=== PATIENT | female | born 1995 | race Caucasian/White ===

== ENCOUNTER 2022-02-28 14:53 | Outpatient (CLI) | payer OTHER, SELFPAY ==
[2022-02-28 15:36] LABS: Hemoglobin A1C* 5.1 % (0-5.6)
[2022-02-28 17:43] LABS: Hepatitis B Surface Antigen* Negative (Negative)
[2022-02-28 17:52] LABS: HIV 1/2/P24 Combo Screen* Negative (Negative)
[2022-02-28 18:00] LABS: Hepatitis C Virus Antibody* Negative (Negative)
[2022-03-02 14:31] LABS: Rubella Antibody IgG 36.4 IU/mL
[2022-03-02 14:51] LABS: Rapid Plasma Reagin (RPR) Non Reactive (Non Reactive)
== END 2022-02-28 14:54 | disposition home or self-care (01) ==
PROVIDERS: PCP Family Medicine; Visit Provider Advanced Practice Midwife
DX: Z34.81 Encounter for supervision of other normal pregnancy, first trimester (principal)
CPT/HCPCS: 76817; 83036; 86592; 86703; 86762; 86787; 86803; 86850; 86900; 86901; 87340

== ENCOUNTER 2022-05-31 09:21 | Outpatient (CLI) | payer OTHER, SELFPAY ==
--- NOTE | 2022-05-31 09:45 | CRLHL7_ITS ---
For Patients: As a result of the Century Cures Act, medical imaging exams and procedure reports are released immediately into your electronic medical record. You may view this report before your referring provider. If you have questions, please contact your health care provider. INDICATION: Evaluate anatomy. COMPARISON: None. TECHNIQUE: Real time rodriguez scale imaging of the fetus was performed. FINDINGS: Sonographic imaging demonstrates a single living intrauterine gestation. Fetus demonstrates a regular cardiac rate of 134 beats per minute. Fetus has a vertex orientation and longitudinal lie. The placenta lies anteriorly without evidence of placenta previa. Amniotic fluid volume appears normal. Single deepest vertical pocket: 3.0 cm. The cervix is closed and measures 3.5 cm in length. The composite ultrasound gestational age is calculated at 19 weeks 5 days with an estimated sonographic due date of October 20, 2022. The estimated weight is 321 grams which lies at the 58th percentile. The following biometric measurements were obtained: Biparietal diameter: 4.6 cm/19 weeks 5 days 53rd% Head circumference: 17.01 cm/19 weeks 4 days 38th% Abdominal circumference: 14.80 cm/20 weeks 1 day 57th% Femur length: 3.16 cm/19 weeks 6 days 47th% The HC/AC ratio measures: 1.15 range (1.08-1.26) On anatomic survey, there is a normal appearance of the cerebral ventricles, cisterna magna and cerebellum. The nose, lips, and facial profile appear normal. The cervical, thoracic and lumbar spine are well visualized and appear normal. The four-chamber heart view and cardiac outflow tracts are suboptimally visualized. Recommend a limited repeat study in 2-4 weeks for these structures. Additionally the diaphragm was not well seen. The stomach, kidneys and bladder appear normal. There is a normal three-vessel cord and cord insertion site. The four extremities appear normal. IMPRESSION: Normal OB ultrasound exam with concordance of clinical and sonographic dating. No intrinsic abnormalities noted on anatomic survey. Please note the four-chamber heart view and cardiac outflow tracts as well as the diaphragm were not optimally visualized and therefore a short interval follow-up limited study for these structures is recommended. Dictated by Andres Dobbs MD @ 05/31/2022 11:03:17 AM (Electronically Signed)
== END 2022-05-31 09:22 | disposition home or self-care (01) ==
LOC: US 09:21
PROVIDERS: PCP Family Medicine; Visit Provider Advanced Practice Midwife
DX: Z34.92 Encounter for supervision of normal pregnancy, unspecified, second trimester (principal); Z3A.19 19 weeks gestation of pregnancy
CPT/HCPCS: 76805; 82728; 84132; 84443

== ENCOUNTER 2022-07-09 09:28 | Outpatient (CLI) | payer OTHER, SELFPAY ==
--- NOTE | 2022-07-09 09:45 | CRLHL7_ITS ---
For Patients: As a result of the Century Cures Act, medical imaging exams and procedure reports are released immediately into your electronic medical record. You may view this report before your referring provider. If you have questions, please contact your health care provider. INDICATION: Follow-up missed anatomy COMPARISON: 05/31/2022 TECHNIQUE: Real time rodriguez scale imaging of the fetus was performed. FINDINGS: Sonographic imaging demonstrates a single living intrauterine gestation. Fetus demonstrates a regular cardiac rate of 126 beats per minute. Fetus has a vertex position. The placenta lies anteriorly. Amniotic fluid volume appears normal. Single deepest vertical pocket: 5.6 cm. The cervix is closed and measures 3.4 cm in length. There is a normal four-chamber heart view and the left and right ventricular outflow tracts appear normal. The diaphragm appears normal. IMPRESSION: Normal heart and diaphragm. Dictated by Alexey Lyn MD @ 07/09/2022 10:18:01 AM (Electronically Signed)
== END 2022-07-09 09:29 | disposition home or self-care (01) ==
LOC: US 09:29
PROVIDERS: PCP Family Medicine; Visit Provider Advanced Practice Midwife
DX: Z34.90 Encounter for supervision of normal pregnancy, unspecified, unspecified trimester (principal)
CPT/HCPCS: 76816

== ENCOUNTER 2022-08-02 14:04 | Outpatient (CLI) | payer OTHER, SELFPAY ==
[2022-08-05 16:57] LABS: Rapid Plasma Reagin (RPR) Non Reactive (Non Reactive)
== END 2022-08-02 14:05 | disposition home or self-care (01) ==
LOC: NFLDREF 14:35
PROVIDERS: PCP Family Medicine; Visit Provider Advanced Practice Midwife
DX: Z34.80 Encounter for supervision of other normal pregnancy, unspecified trimester (principal)
CPT/HCPCS: 86592

== ENCOUNTER 2022-08-16 15:02 | Outpatient (CLI) | payer OTHER, SELFPAY ==
[2022-08-16 17:36] LABS: Alanine Aminotransferase* 20 U/L (4-35); Aspartate Amino Transferase* 21 U/L (12-35); Creatinine* 0.5 mg/dL (0.5-1.5); Estimated Glomerular Filt Rate 133 ml/min
[2022-08-16 17:45] LABS: Total Protein Urine < 5 mg/dL
[2022-08-16 17:46] LABS: Creatinine Urine 234.4 mg/dL
== END 2022-08-16 15:03 | disposition home or self-care (01) ==
PROVIDERS: PCP Family Medicine; Visit Provider Advanced Practice Midwife
DX: Z34.83 Encounter for supervision of other normal pregnancy, third trimester (principal); Z3A.30 30 weeks gestation of pregnancy
CPT/HCPCS: 82565; 82570; 84156; 84450; 84460

== ENCOUNTER 2022-09-28 14:47 | Outpatient (CLI) | payer OTHER, SELFPAY ==
[2022-09-29 12:58] LABS: Strep B DNA Probe NEGATIVE (Negative)
[2022-09-29 13:03] LABS: Strep B Pen/Amox Allergy No
== END 2022-09-28 14:48 | disposition home or self-care (01) ==
LOC: NFLDREF 14:47
PROVIDERS: PCP Family Medicine; Visit Provider Advanced Practice Midwife
DX: Z34.93 Encounter for supervision of normal pregnancy, unspecified, third trimester (principal); Z3A.36 36 weeks gestation of pregnancy
CPT/HCPCS: 87081; 87653

== ENCOUNTER 2022-10-05 15:04 | Outpatient (CLI) | payer OTHER, SELFPAY | END 2022-10-05 15:05 | disposition home or self-care (01) | PROVIDERS: PCP Family Medicine; Visit Provider Advanced Practice Midwife | DX: Z34.93 Encounter for supervision of normal pregnancy, unspecified, third trimester (principal) | CPT/HCPCS: 82728; 83540; 83550 ==

== ENCOUNTER 2022-10-09 13:30 | Emergency (ER) | payer OTHER, SELFPAY ==
[2022-10-09] VITALS (20 sets, daily range): BP systolic 108–137; BP diastolic 65–97; PULSE 78–119; RESP 16–20; TEMP 36.5; O2SAT 96–100; BMI 38.1
--- NOTE | 2022-10-09 13:58 | ED_ITS ---
HPI - Chest Pain General Date Seen: 10/09/22 Chief Complaint: Chest Pain Stated Complaint: 38.5 weeks , chest pain Time Seen by Provider: 10/09/22 13:36 Source: patient Mode of arrival: ambulatory Limitations: no limitations History of Present Illness HPI narrative: This pleasant 27-year-old female presents here for evaluation of chest pain that she has had for approximately 4-5 hours whenever she moves twists or turns she notes pain that radiates from her chest region up into her neck. Son some much when she takes a deep breath in, she denies any coughing fevers chills, she has never before had this. She is 38+ weeks currently, no past history of pulmonary emboli DVTs. She has however have been slightly elevated blood pressure with this at least at the end. 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 MD complaint: chest pain Onset (ago): hour(s) Timing of current episode: episodic Prior episodes: No Onset: during rest, during exertion and awoke with symptoms Pain location: substernal and left chest Pain radiation: back and neck Severity: mild Quality: sharp Relieving factors: remaining still Exacerbating factors: movement Treatment prior to arrival: none Risk Factors Coronary artery disease risk factors: none Pulmonary embolism risk factors: Related Data On Oral Contraceptives: No Home Medications Medication Instructions Recorded Confirmed cetirizine 10 mg tablet (Zyrtec) 10 mg PO QDAY PRN 02/14/22 09/28/22 docosahexaenoic acid 200 mg mg PO 02/14/22 09/28/22 capsule ( DHA) fluticasone propionate 50 1 spray intranasal QDAY PRN 02/28/22 09/28/22 mcg/actuation nasal spray,suspension (Flonase Allergy Relief) magnesium oxide,aspartate,citr mg PO 04/13/22 09/28/22 docusate sodium 100 mg capsule 100 mg PO QDAY 07/09/22 09/28/22 (Colace) calcium carbonate 200 mg calcium 200 mg PO BID 10/05/22 10/05/22 (500 mg) chewable tablet (Tums) Previous Rx's Medication Instructions Recorded triamcinolone acetonide 0.1 % 1 applic topical ONCE #15 grams 05/09/22 topical ointment albuterol sulfate 90 mcg/actuation 2 puff inhalation Q4H PRN 10/03/22 aerosol inhaler shortness of breath or wheezing #6.7 grams Allergies Allergy/AdvReac Type Severity Reaction Status Date / Time epinephrine Allergy Intermediate Racing Verified 10/09/22 13:43 heart Sulfa (Sulfonamide Allergy Intermediate Hives Verified 10/09/22 13:43 Antibiotics) amoxicillin Allergy Unknown Verified 10/09/22 13:43 ciprofloxacin Allergy Unknown Verified 10/05/22 14:48 Clavulanate Allergy Unknown Uncoded 10/05/22 14:48 Review of Systems Status of ROS Reports: 10 or more systems reviewed and unremarkable except as noted in History and below [facility] Medical History Family history of breast cancer History of gestational diabetes Surgical History History of ovarian cystectomy Status post cholecystectomy Family History Family/Other Diabetes Paternal Grandfather Diabetes Mother Breast cancer High blood pressure Cervical cancer Father High blood pressure Brother ADHD Social History Narrative: SOCIAL Education: Diploma Work: [employer] Partner: Praneeth, clinical research associate Lives with: Praneeth, Daughter, Deborah (4) and son Larry(1); Step daughter, Lacy (8) Pets: 3 cats Abuse: Denies past/present Special Diet: Denies Ok with a blood transfusion: yes Culture or sabianist beliefs: denies RISK FACTORS Exercise Times/wk: routine at work, not outside Depression/Anxiety: Overall now doing well, used Prozac prior to SCOOTER: [] PHQ 9: [] Seat Belt Use: [Routinely] Smoking: History of smoking, occasional smoker now, stopped with Alcohol/day: Denies while , occasional Caffeine: yes, soda Drug Use: Denies past/present Chicken Pox: Yes, recently and was vaccinated as a child MRSA: Denies Smoking Status: Former smoker Do you use any of these nicotine containing products: None Second hand tobacco smoke exposure: No How often do you have a drink containing alcohol: never How often do you have six or more drinks on one occasion: Never AUDIT-C Alcohol total score: 0 Non-prescribed substance use: denies use Little interest or pleasure in doing things: not at all Feeling down, depressed, or hopeless: not at all service: No Exam Narrative Exam Narrative: She is seen in room H she is in no apparent distress speaking to me normally, her pupils are equal round reactive to light, there is no scleral icterus redness, cranial nerves 3-12 are normal, her neck is supple, her JVP is not elevated, her chest is clear bilaterally with easy respirations no splinting, no extra sounds, heart sounds no clicks murmurs or gallops, she has no palpable chest pain across her chest, and it is not reproducible. Her abdomen is soft and gravid, there is no tenderness to palpation bowel sounds are normal, the fetus is alert and active, OB nurses in, showing a reactive tracing, or lower legs bilaterally show 1+ pitting edema bilaterally, negative Homans sign, she moves all extremities independently and well. Const Vital Signs, click to edit/add: Vital Signs - 24 hr 10/09/22 13:35 10/09/22 13:56 10/09/22 14:00 Temperature 97.7 F Pulse Rate 98 106 H Pulse Rate [Pulse Oximeter] 102 H Respiratory Rate 20 Blood Pressure Blood Pressure [Right Upper Arm] 130/83 Pulse Oximetry 98 98 97 Oxygen Delivery Method Room Air 10/09/22 14:02 10/09/22 14:15 10/09/22 14:30 Temperature Pulse Rate 119 H 100 84 Pulse Rate [Pulse Oximeter] Respiratory Rate Blood Pressure 119/80 Blood Pressure [Right Upper Arm] Pulse Oximetry 97 97 96 Oxygen Delivery Method 10/09/22 14:32 10/09/22 14:49 10/09/22 15:00 Temperature Pulse Rate 90 95 91 Pulse Rate [Pulse Oximeter] Respiratory Rate Blood Pressure 111/76 Blood Pressure [Right Upper Arm] Pulse Oximetry 96 97 96 Oxygen Delivery Method 10/09/22 15:02 10/09/22 15:15 10/09/22 15:30 Temperature Pulse Rate 105 H 87 78 Pulse Rate [Pulse Oximeter] Respiratory Rate Blood Pressure 113/71 Blood Pressure [Right Upper Arm] Pulse Oximetry 96 96 96 Oxygen Delivery Method 10/09/22 15:32 10/09/22 15:45 10/09/22 16:00 Temperature Pulse Rate 89 80 80 Pulse Rate [Pulse Oximeter] Respiratory Rate Blood Pressure 108/65 Blood Pressure [Right Upper Arm] Pulse Oximetry 97 98 98 Oxygen Delivery Method 10/09/22 16:02 Temperature Pulse Rate 92 Pulse Rate [Pulse Oximeter] Respiratory Rate Blood Pressure 112/66 Blood Pressure [Right Upper Arm] Pulse Oximetry 99 Oxygen Delivery Method Documenting provider has reviewed patient's vital signs: yes Course Course Hospital Course: I went back in and spoke to the patient and her , her D-dimer, troponin, chest X were all normal, she has these fleeting episodes of chest pain with radiation, I did offer her to do a CT scan of her chest, with contrast but I really think when the likelihood of this is a pulmonary emboli is low, given her normal saturations, and normal D-dimer. This more likely is related to the hormonal changes with , the loosening of ligaments, I explained to her that I would just watch this at this point, take some Tylenol for the discomfort, we went over worsening signs and symptoms she was comfortable with this. Will return if any further issues. Vital Signs Vital signs: Initial Vital Signs Temperature 97.7 F 10/09/22 13:35 Temperature Source Temporal Artery Scan 10/09/22 13:35 Pulse Rate 102 H 10/09/22 13:35 Pulse Rhythm 10/09/22 13:35 Pulse Strength 3+ Normal 10/09/22 13:35 Respiratory Rate 20 10/09/22 13:35 Blood Pressure 130/83 10/09/22 13:35 Blood Pressure Mean 98 10/09/22 13:35 Blood Pressure Position Sitting 10/09/22 13:35 Pulse Oximetry 98 10/09/22 13:35 Oxygen Delivery Method 10/09/22 13:35 Vital Signs Temperature 97.7 F 10/09/22 13:35 Pulse Rate 102 H 10/09/22 13:35 Respiratory Rate 20 10/09/22 13:35 Blood Pressure 130/83 10/09/22 13:35 Pulse Oximetry 98 10/09/22 13:35 Oxygen Delivery Method 10/09/22 13:35 Temperature 97.7 F 10/09/22 13:35 Pulse Rate 92 10/09/22 16:02 Respiratory Rate 20 10/09/22 13:35 Blood Pressure 112/66 10/09/22 16:02 Pulse Oximetry 99 10/09/22 16:02 Oxygen Delivery Method 10/09/22 13:35 MDM - Chest Pain MDM Narrative Medical decision making narrative: During the evaluation of this patient I considered multiple differential diagnosis is. The life-threatening differential diagnosis include coronary disease/AL, pulmonary embolism, pneumothorax, pneumonia, and aortic dissection. Other differential diagnosis included but were not limited to pericarditis, myocarditis, chest wall pain, GERD, esophageal rupture, rib fracture contusion, pleurisy, as well as other etiologies. Medical Records Data Attestation: I reviewed the patient's medical records. Lab Data Attestation: I reviewed the patient's lab results. Lab results narrative: Hemoglobin was low normal at 11.6, D-dimer was normal troponin was negative, EKG was normal Labs: Lab Results 10/09/22 10/09/22 10/09/22 Range/Units 14:20 14:20 14:20 WBC 10.42 (4.50-11.00) K/uL RBC 3.89 L (4.00-5.20) m/uL Hgb 11.6 L (12.0-16.0) gm/dL Hct 34.9 (33.0-51.0) % MCV 90 (80-100) fL MCH 30 (26-34) pg MCHC 33 (32-36) gm/dL RDW Coeff of Jonathan 13.3 (11.5-15.5) % Plt Count 311 (140-440) K/uL Neut % (Auto) 66.0 (42.0-72.0) % Lymph % (Auto) 21.9 (20-44) % Thomas % (Auto) 7.9 (0.0-11.0) % Eos % (Auto) 2.7 (0.0-7.0) % Baso % (Auto) 0.2 (0.0-3.0) % Neut # (Auto) 6.88 (1.7-7.0) K/uL Lymph # (Auto) 2.28 (0.90-2.90) K/uL Thomas # (Auto) 0.80 (0.00-0.90) K/UL Eos # (Auto) 0.28 (0.00-0.50) K/uL Baso # (Auto) 0.02 (0.00-0.30) K/uL INR (0.91-1.10) APTT 28 (23-33) Seconds D-Dimer Quant (PE/DVT) 0.45 (0.00-0.50) ug/ml Sodium 136 (135-149) mmol/L Potassium 3.6 (3.6-5.1) mmol/L Chloride 109 (96-114) mmol/L Carbon Dioxide 22 (20-32) mmol/L BUN 6 (5-24) mg/dL Creatinine 0.4 L (0.5-1.5) mg/dL Estimated Creat Clear 184.04 Estimated GFR 140 ml/min Glucose 89 (60-115) mg/dL Calcium 9.0 (8.4-10.6) mg/dL Total Bilirubin 0.3 (0.1-1.5) mg/dL Direct Bilirubin 0.2 (0.0-0.5) mg/dL AST 20 (12-35) U/L ALT 21 (4-35) U/L Alkaline Phosphatase 156 H (40-150) U/L C-Reactive Protein 1.0 (0.5-1.0) mg/dL NT-Pro-B Natriuret Pep pg/mL Total Protein 6.9 (6.0-8.3) g/dL Albumin 3.5 (3.3-5.0) g/dL Lipase 77 (23-300) U/L SARS-CoV-2 (PCR) (Negative) Influenza Type A (PCR) (Negative) Influenza Type B (PCR) (Negative) RSV (PCR) (Negative) POC Troponin I (0.01-0.04) ng/ml 10/09/22 10/09/22 10/09/22 Range/Units 14:20 14:20 14:20 WBC (4.50-11.00) K/uL RBC (4.00-5.20) m/uL Hgb (12.0-16.0) gm/dL Hct (33.0-51.0) % MCV (80-100) fL MCH (26-34) pg MCHC (32-36) gm/dL RDW Coeff of Jonathan (11.5-15.5) % Plt Count (140-440) K/uL Neut % (Auto) (42.0-72.0) % Lymph % (Auto) (20-44) % Thomas % (Auto) (0.0-11.0) % Eos % (Auto) (0.0-7.0) % Baso % (Auto) (0.0-3.0) % Neut # (Auto) (1.7-7.0) K/uL Lymph # (Auto) (0.90-2.90) K/uL Thomas # (Auto) (0.00-0.90) K/UL Eos # (Auto) (0.00-0.50) K/uL Baso # (Auto) (0.00-0.30) K/uL INR 0.94 (0.91-1.10) APTT (23-33) Seconds D-Dimer Quant (PE/DVT) (0.00-0.50) ug/ml Sodium (135-149) mmol/L Potassium (3.6-5.1) mmol/L Chloride (96-114) mmol/L Carbon Dioxide (20-32) mmol/L BUN (5-24) mg/dL Creatinine (0.5-1.5) mg/dL Estimated Creat Clear Estimated GFR ml/min Glucose (60-115) mg/dL Calcium (8.4-10.6) mg/dL Total Bilirubin (0.1-1.5) mg/dL Direct Bilirubin (0.0-0.5) mg/dL AST (12-35) U/L ALT (4-35) U/L Alkaline Phosphatase (40-150) U/L C-Reactive Protein (0.5-1.0) mg/dL NT-Pro-B Natriuret Pep < 20 pg/mL Total Protein (6.0-8.3) g/dL Albumin (3.3-5.0) g/dL Lipase (23-300) U/L SARS-CoV-2 (PCR) Negative SARS-CoV-2 (Negative) Influenza Type A (PCR) Negative PCR FLU A (Negative) Influenza Type B (PCR) Negative PCR FLU B (Negative) RSV (PCR) Negative PCR RSV (Negative) POC Troponin I (0.01-0.04) ng/ml 10/09/22 Range/Units 14:23 WBC (4.50-11.00) K/uL RBC (4.00-5.20) m/uL Hgb (12.0-16.0) gm/dL Hct (33.0-51.0) % MCV (80-100) fL MCH (26-34) pg MCHC (32-36) gm/dL RDW Coeff of Jonathan (11.5-15.5) % Plt Count (140-440) K/uL Neut % (Auto) (42.0-72.0) % Lymph % (Auto) (20-44) % Thomas % (Auto) (0.0-11.0) % Eos % (Auto) (0.0-7.0) % Baso % (Auto) (0.0-3.0) % Neut # (Auto) (1.7-7.0) K/uL Lymph # (Auto) (0.90-2.90) K/uL Thomas # (Auto) (0.00-0.90) K/UL Eos # (Auto) (0.00-0.50) K/uL Baso # (Auto) (0.00-0.30) K/uL INR (0.91-1.10) APTT (23-33) Seconds D-Dimer Quant (PE/DVT) (0.00-0.50) ug/ml Sodium (135-149) mmol/L Potassium (3.6-5.1) mmol/L Chloride (96-114) mmol/L Carbon Dioxide (20-32) mmol/L BUN (5-24) mg/dL Creatinine (0.5-1.5) mg/dL Estimated Creat Clear Estimated GFR ml/min Glucose (60-115) mg/dL Calcium (8.4-10.6) mg/dL Total Bilirubin (0.1-1.5) mg/dL Direct Bilirubin (0.0-0.5) mg/dL AST (12-35) U/L ALT (4-35) U/L Alkaline Phosphatase (40-150) U/L C-Reactive Protein (0.5-1.0) mg/dL NT-Pro-B Natriuret Pep pg/mL Total Protein (6.0-8.3) g/dL Albumin (3.3-5.0) g/dL Lipase (23-300) U/L SARS-CoV-2 (PCR) (Negative) Influenza Type A (PCR) (Negative) Influenza Type B (PCR) (Negative) RSV (PCR) (Negative) POC Troponin I 0.00 L (0.01-0.04) ng/ml Imaging Data Chest x-ray: Attestation: I have reviewed the pertinent imaging results. My impression: No acute changes Radiologist's impression: Patient: CARRIE KUO Facility:?[facility] Patient ID:?[id number] Site Patient ID:?[id number]. Site :?[id number] Study:?XRay Chest 2 VIEW-10/09/2022 2:54:17 PM Ordering Physician:Jeana Tran Final Report: INDICATION: CHEST PAIN TECHNIQUE: Chest 2 views. COMPARISON: None. FINDINGS: Cardiovascular and mediastinum: Heart size and vasculature are normal in caliber and appearance. Mediastinum is within normal limits. Lungs and pleural spaces: Lungs are clear. No sign of infiltrate or mass. No sign of pleural effusion. No pneumothorax. Bones and soft tissues: No significant findings. IMPRESSION: Unremarkable chest. Dictated by: Alexey Bai MD @ 10/09/2022 15:01:29 (Electronic Signature) ECG Data Attestation: I personally reviewed and interpreted this ECG as follows: ECG interpretation date: 10/09/22 Interpretation: EKG shows no acute changes, normal sinus rhythm with a heart rate of 97, otherwise normal Discharge Plan Discharge Clinical Impression: , Chest pain Patient Disposition: Home w/ Parent or Adult Condition: Stable Instructions: Chest Pain (DC), at 35 to 38 Weeks (ED) Additional Instructions: As I discussed with you in her , very reassuring laboratory results, no evidence of any significant abnormality on the the chest x-ray EKG or blood tests, the D-dimer was reassuring we normal. Would not recommend further testing for this at this point, would recommend Tylenol for the discomfort, and reassurance. It is really common at the end of to have these sort of pains, and hormonal issues. Return if increasing chest pain shortness of breath Prescriptions: No Action cetirizine [Zyrtec] 10 mg tablet 10 mg PO QDAY PRN DHA 200 mg capsule PO magnesium oxide,aspartate,citr 400 mg magnesium capsule PO calcium carbonate [Tums] 200 mg calcium (500 mg) tablet,chewable 200 mg PO BID fluticasone propionate [Flonase Allergy Relief] 50 mcg/actuation spray,suspension 1 spray intranasal QDAY PRN Rx Instructions: administer into each nostril triamcinolone acetonide 0.1 % ointment 1 applic topical ONCE Qty: 15 0RF docusate sodium [Colace] 100 mg capsule 100 mg PO QDAY albuterol sulfate 90 mcg/actuation HFA aerosol inhaler 2 puff inhalation Q4H PRN (Reason: shortness of breath or wheezing) Qty: 6.7 2RF Follow Up/Referrals: Britton Johnson MD [Primary Care Provider] - Stand Alone Forms: [facility] Info Instructions
--- NOTE | 2022-10-09 14:22 | CRLHL7_ITS ---
For Patients: As a result of the Century Cures Act, medical imaging exams and procedure reports are released immediately into your electronic medical record. You may view this report before your referring provider. If you have questions, please contact your health care provider. INDICATION: CHEST PAIN TECHNIQUE: Chest 2 views. COMPARISON: None. FINDINGS: Cardiovascular and mediastinum: Heart size and vasculature are normal in caliber and appearance. Mediastinum is within normal limits. Lungs and pleural spaces: Lungs are clear. No sign of infiltrate or mass. No sign of pleural effusion. No pneumothorax. Bones and soft tissues: No significant findings. IMPRESSION: Unremarkable chest. Dictated by: Alexey Bai MD @ 10/09/2022 15:01:29 (Electronically Signed)
--- NOTE | 2022-10-09 14:41 | PC.OBNST ---
NST Note NST Note Start: 10/09/22 14:37 Freq: ONCE Status: Active Protocol: Document 10/09/22 14:37 MAXINE (Rec: 10/09/22 14:41 FERMÍNGENNA [id number]) NST Note 3 Para (# of births) 2 EDC 10/20/22 Gestational Age In Weeks & Days 38 Weeks & 3 Days Patient Presented with Complaint(s) of Pain If Pain, describe location Chest pain Other Complaints Patient admitted to ED for chest pain. RN came to unit to evaluate FHR and contraction pattern. FHR baseline was 135 with accels and no decels. No contractions per toco. Reactive Yes Appropriate for Gestational Age Yes NEWTON Iglesias Date 10/09/22 Reactive Yes Appropriate for Gestational Age Yes NEWTON Stanley Date 10/09/22 OB NST charge Yes Complete NST Note via Write Note Yes The provider's electronic signature indicates the NST is reactive/appropriate for gestational age. *Note to provider: If an addendum is required, open the patient's chart and click on the note under the Nurse/Allied Health tab.
[2022-10-09 14:45] LABS: Basophils Absolute Auto 0.02 K/uL (0.00-0.30); Basophils Percent Auto 0.2 % (0.0-3.0); Eosinophils Absolute Auto 0.28 K/uL (0.00-0.50); Eosinophils Percent Auto 2.7 % (0.0-7.0); Hematocrit 34.9 % (33.0-51.0); Hemoglobin* 11.6 gm/dL (12.0-16.0); Immature Granulocytes Abs Auto 0.14 K/uL (0.00-0.30); Immature Granulocytes Pct Auto 1.3 %; Lymphocytes Absolute Auto 2.28 K/uL (0.90-2.90); Lymphocytes Percent Auto 21.9 % (20-44); Mean Corpuscular HGB Conc 33 gm/dL (32-36); Mean Corpuscular Hemoglobin 30 pg (26-34); Mean Corpuscular Volume 90 fL (80-100); Monocytes Percent Auto 7.9 % (0.0-11.0); Neutrophils Absolute Auto 6.88 K/uL (1.7-7.0); Platelet Count* 311 K/uL (140-440); RDW Coefficient of Variation % 13.3 % (11.5-15.5); Red Blood Count 3.89 m/uL (4.00-5.20); White Blood Count* 10.42 K/uL (4.50-11.00)
[2022-10-09] MEDS: 0.9 % SODIUM CHLORIDE 1000 ml 1,000 ML IV (14:56)
[2022-10-09 15:12] LABS: Slide Review Reflex No
[2022-10-09 15:14] LABS: Albumin* 3.5 g/dL (3.3-5.0); Chloride* 109 mmol/L (96-114)
[2022-10-09 15:15] LABS: Potassium* 3.6 mmol/L (3.6-5.1); Sodium* 136 mmol/L (135-149)
[2022-10-09 15:17] LABS: Creatinine* 0.4 mg/dL (0.5-1.5); Est. Creatinine Clearance* 184.04; Estimated Glomerular Filt Rate 140 ml/min
[2022-10-09 15:18] LABS: Alanine Aminotransferase* 21 U/L (4-35); Alkaline Phosphatase* 156 U/L (40-150); Aspartate Amino Transferase* 20 U/L (12-35); Bilirubin Direct* 0.2 mg/dL (0.0-0.5); Bilirubin Total* 0.3 mg/dL (0.1-1.5); Blood Urea Nitrogen* 6 mg/dL (5-24); Carbon Dioxide* 22 mmol/L (20-32); Glucose* 89 mg/dL (60-115); Lipase* 77 U/L (23-300); Total Protein* 6.9 g/dL (6.0-8.3)
[2022-10-09 15:19] LABS: Partial Thromboplastin Time* 28 Seconds (23-33)
[2022-10-09 15:22] LABS: D Dimer Quantitative* 0.45 ug/ml (0.00-0.50)
[2022-10-09 15:40] LABS: PCR FLU A Negative PCR FLU A (Negative); PCR FLU B Negative PCR FLU B (Negative); PCR RSV Negative PCR RSV (Negative)
[2022-10-09 15:46] LABS: NT Pro B Type NatriureticPept* < 20 pg/mL
[2022-10-09 15:50] LABS: SARS PCR* Negative SARS-CoV-2 (Negative)
[2022-10-09 16:04] LABS: INR 0.94 (0.91-1.10); Prothrombin Time 13.2 Seconds
== END 2022-10-09 16:27 | disposition home or self-care (01) ==
PROVIDERS: Emergency Provider Family Medicine; PCP Family Medicine
DX: R07.89 Other chest pain (principal); Z3A.38 38 weeks gestation of pregnancy
CPT/HCPCS: 36415; 59025; 71046; 80048; 80076; 83690; 83880; 84484; 85025; 85379; 85610; 85730; 86140; 87502; 87634; 87635; 93005; 99284; J7030

== ENCOUNTER 2022-10-14 18:09 | Outpatient (CLI) | payer OTHER, SELFPAY ==
[2022-10-14 18:47] LABS: Amnisure Rom* Negative
[2022-10-14 18:53] VITALS: BP 126/76; PULSE 101; PULSE 90; RESP 16; TEMP 36.8; O2SAT 99
--- NOTE | 2022-10-14 19:40 | PC.OBNST ---
NST Note NST Note Start: 10/14/22 18:11 Freq: ONCE Status: Active Protocol: Document 10/14/22 19:26 JESE (Rec: 10/14/22 19:27 JESE [id number]) NST Note 3 Para (# of births) 2 EDC 10/20/22 Gestational Age In Weeks & Days 39 Weeks & 1 Days Patient Presented with Complaint(s) of Leaking fluid Reactive Yes Appropriate for Gestational Age Yes RN Bren Interiano, RNC Date 10/14/22 Reactive Yes Appropriate for Gestational Age Yes NEWTON Maldonado, RNC Date 10/14/22 OB NST charge Yes Complete NST Note via Write Note Yes The provider's electronic signature indicates the NST is reactive/appropriate for gestational age. *Note to provider: If an addendum is required, open the patient's chart and click on the note under the Nurse/Allied Health tab.
== END 2022-10-14 19:26 | disposition home or self-care (01) ==
LOC: OB OUT 18:09 → OB 18:10
PROVIDERS: PCP Family Medicine; Visit Provider Advanced Practice Midwife
DX: O47.03 False labor before 37 completed weeks of gestation, third trimester (principal); Z3A.39 39 weeks gestation of pregnancy
CPT/HCPCS: 59025; 84112; 99213

== ENCOUNTER 2022-10-15 08:45 | Inpatient (IN) | payer OTHER, SELFPAY ==
[2022-10-15] VITALS (29 sets, daily range): BP systolic 111–137; BP diastolic 55–85; PULSE 74–109; RESP 16–20; TEMP 36.6–37.2; O2SAT 98–99; BMI 38.9
--- NOTE | 2022-10-15 09:38 | P.LDBA_ITS ---
Documented by User: Susan Green 10/15/22 09:53 Subjective History of Present Illness Date Seen: 10/15/22 Narrative: Shobha is being admitted to Labor and Delivery for elective induction of labor. She is a 27 year old at weeks 39.2 gestation. H&P done 10/05/22 by Kellee Bain CNM Ob Problem list: 1. Anxiety and Depression Seen therapist in the past at [facility] Was on Prozac before , stopped by Dr. Johnson; reported mood was good at [facility] w/out meds 2. History of Hypertension with 1st Recommended baby aspirin, declines 3. BMI 35.2 4. History of Gestational Diabetes with 2nd baby, diet controlled 20 wk GTT: 125 28 wk GTT: 96 5. IBS 6. Asthma Uses inhaler 2x per week 7. Smoker Smoked occasionally during summer, stopped with + preg test 8. UTI at ER visit previously On Macrobid at [facility], RAH done at urgent care was normal/neg 9. Planning Tubal Discussed with Dr. Moreno 07/09/22. No federal consent needed; private insurance. OB - Problem Based A/P Additional Plan (1) Encounter for induction of labor: Status: Acute (2) 39 weeks gestation of : Status: Acute Plan ASSESSMENT:? 27yo at 39.2 weeks gestation? complicated by: Anxiety and Depression, History of Hypertension with 1st , BMI 35.2, History of Gestational Diabetes with 2nd baby, diet controlled, IBS, Asthma, Smoker, UTI in , Planning Tubal Labor type: Induced, Early labor? Category 1 FHR pattern.??? GBS negative? ? PLAN:? 1. Routine intrapartum cares as ordered. Cytotec per protocol for cervical ripening.? 2. Monitoring per policy, continuous ? 3. Undecided on water . Consent signed. Hep C negative. Candidate for analgesia of choice.?? 4. Patient encouraged to reposition and ambulate to promote physiologic labor and .? 5. Anticipate ? Delivery/Labor/Induction Plan Plan: induction Induction method: per misoprostol protocol OB Exam Physical Exam Vital signs: Temp Pulse BP Pulse Ox 98.2 F 101 H 134/85 99 10/15/22 09:14 10/15/22 09:15 10/15/22 09:15 10/15/22 09:16 Narrative: Vitals Reviewed? Psychiatric:? Alert and oriented x3? HEENT:? Normocephalic, atraumatic? Neck:? Supple?? Lungs:? Clear to auscultation bilaterally? Heart:? Regular rate and rhythm, no murmur, rub or gallop? Abdomen:? Soft, nontender, and gravid. Vertex by Jay's, confirmed with cervical exam.? Extremities:? No edema or erythema Detailed Labor and Delivery Exam Patient Gravid: Yes Dilation (cm): 1 Effacement (%): 50 Cervix position: posterior Consistency: soft Cervical ripeness score: 4 Contraction Frequency: 5-10 Contraction duration (sec): 60 Tachysystole: No Contraction intensity: Mild Fetus (Single) Station: -3 Amniotic Membrane Status: intact Heart Rate Baseline: 140 Monitor Accelerations: Present Monitor Decelerations: None Jail Variability: Moderate (6-25) Documented by User: Yeimy Ott CNM 10/15/22 18:44 OB - Problem Based A/P Additional Plan (1) Encounter for induction of labor: Status: Acute (2) 39 weeks gestation of : Status: Acute Plan ASSESSMENT:? 27yo at 39.2 weeks gestation? complicated by: Anxiety and Depression, History of Hypertension with 1st , BMI 35.2, History of Gestational Diabetes with 2nd baby, diet controlled, IBS, Asthma, Smoker, UTI in , Planning Tubal Labor type: Elective IOL for maternal discomfort Category 1 FHR pattern.??? GBS negative? ? PLAN:? 1. Routine intrapartum cares as ordered. 2. Cytotec per protocol for cervical ripening.? 3. Monitoring per policy, continuous ? 4. Undecided on water . Consent signed. Hep C negative. Candidate for analgesia of choice.?? 5. Patient encouraged to reposition and ambulate to promote physiologic labor and .? 6. Anticipate ?
[2022-10-15] MEDS: miSOPROStoL 25 MCG/0.25 TABLET VAGINAL ×3 (09:42→17:26)
[2022-10-15 10:52] LABS: SARS PCR* Negative SARS-CoV-2 (Negative)
[2022-10-15] MEDS: cephALEXin 500 MG CAPSULE PO (19:30)
--- NOTE | 2022-10-15 20:01 | P.OBPN_ITS ---
Subjective Time Seen by Provider: 19:45 Date Seen: 10/15/22 Narrative: Shobha is coping well with labor pain/contractions. Her partner is with her for support. She would like to continue with non pharmacologic methods and positioning for comfort and pain management.??She would like a SVE at this time. States she is feeling ctx which are more intense than previously. Not breathing through ctx at this time. Objective Exam: VSS, afebrile General Appearance:? Calm, cooperative. No acute distress. ? Psychiatric Exam: Alert and oriented, appropriate affect Abdomen: Gravid Ctx: ?Q2-5 min apart. ?Mild FHTs: Baseline: 135. Variability: moderate. Accels: present. Decels: none. SVE: /-3 Membranes: Intact ? Vital Signs: Last Vital Signs Temp 97.9 F 10/15/22 19:19 Pulse 105 H 10/15/22 19:32 Resp 16 10/15/22 19:19 BP 118/59 L 10/15/22 19:32 Pulse Ox 98 10/15/22 18:53 Assessment Heart Rate Baseline: 140 Plan Plan: Assessment:?? at 39.2 gestation?? GBS negative Patient is coping well with challenges of labor.?? Labor type: Elective IOL for maternal discomfort, early labor complicated by: hx of asthma ? Plan:?? Continue with cytotec per protocol Continue with routine intrapartum cares as ordered.?? Patient encouraged to move and change positions to promote physiologic labor and .?? Nonpharmacologic comfort measures per patient preference. Candidate for analges ia of choice if desired. Patient planning waterbirth Anticipate progress to NVD.
[2022-10-15] MEDS: LACTATED RINGERS 1000 ML 1,000 ML IV (20:49)
[2022-10-15] MEDS: OXYTOCIN 30 unit/500 ML in NS 30 UNIT/500 ML BAG 300 UNIT IVPB (21:43)
[2022-10-15] MEDS: IBUPROFEN 600 MG TABLET PO (22:08)
[2022-10-15] MEDS: OXYCODONE 5 MG TABLET PO (22:09)
--- NOTE | 2022-10-15 22:24 | W.PM.OBVAGDE ---
OB Procedure Vag Delivery Mother Details Mother Details: The patient is a 27 year-old, 3, Para 2, admitted on 10/15/22 at 39.2 weeks gestation for elective induction of labor. Additional Details Amniotic Membrane Status: intact Heart: heart tones during second stage were [] Delivery Details Delivery Details: Delivered over [intact perineum] via [spontaneous] vaginal delivery. Infant was placed on maternal abdomen.? Cord was clamped and cut after a 30-60 second delay. Nose and mouth were bulb suctioned.? Infant weight pending. Event Summary Status: Mother and infant were stable after delivery.
--- NOTE | 2022-10-15 22:27 | W.PM.OBVAGDE ---
Documented by User: Susan Green 10/15/22 22:50 OB Procedure Vag Delivery Mother Details Mother Details: The patient is a 27 year-old, 3, Para 2, admitted on 10/15/22 at Days gestation. She received 3 doses of Cytotec and went on the deliver precipitously without medication. Placenta delivered spontaneously and intact, trailing membranes were noted. She appeared to be emotionally overwhelmed after delivery and was requesting pain medication for her perineal pain. Given one dose of oxycodone and ibuprofen for pain relief. There was a small 1st degree tear which had some oozing, holding pressure to the site decreased the oozing and the patient did not want to have it repaired. Labial tear also seen and not repaired. : 3 Para: 3 Weeks Gestation: 39.2 Admission Date: 10/15/22 Additional Details Amniotic Membrane Status: SROM Amniotic Membrane Rupture Date: 10/15/22 Amniotic Membrane Rupture Time: 21:37 Amniotic Membrane Fluid Description: Meconium Stained Analgesia/Anesthesia Type: Nitrous Oxide Waterbirth: No Pitcoin: Yes (AMSTL) Intrapartal Events: Labor Induction and Precipitous Labor <3 Hrs Induction Method: per misoprostol protocol Labor Onset: 20:00 Complete: 21:35 Pushin:30 Heart: heart tones during second stage were poorly traced due to maternal discomfort and movement. At the end of pushing FHR noted to be 70-90's, position changes done and pt delivered soon after. Delivery Details Delivery Date: 10/15/22 Delivery Time: 21:41 Route of delivery: Infant Gender: Male Viability: Alive; Heart Rate Present Position at Delivery: OA Delivery Details: Delivered over intact perineum via spontaneous vaginal delivery. was placed on maternal abdomen.? Cord was clamped and cut after a >5 minute delay. Nose and mouth were bulb suctioned.? Infant weight pending. 1 Minute Interval Total Score: 8 5 Minute Interval Total Score: 9 Additional Details Shoulder Dystocia: No Placenta Delivery Time: 21:50 (trailing membranes) Placental Delivery Description: Spontaneous Procedure Done: Global Blood Loss: 25 Laceration: Perineal - 1st Degree (labial tear no repair done) Blood Loss Measurement Type: QBL Bakri Used: No Sponge/Need Count Correct: Yes Cord Vessel Description: 3 Vessels, Nuchal Cord and Delivered through Event Summary Status: Mother and were stable after delivery. Disposition: floor Documented by User: Yeimy Ott CNM 10/15/22 23:34 OB Procedure Vag Delivery Mother Details Mother Details: The patient is a 27 year-old, 3, Para 2, admitted on 10/15/22 at 39.2 Days gestation. She received 3 doses of Cytotec and went on the deliver precipitously without medication. Called to pt room. Pt breathing through ctx standing at edge of the bed. Has nitrous, which is helping. Requested epidural, but anesthesia currently placing for another patient. Unable to give fentynal r/t recent nitrous use. Pt encouraged to continue with the nitrous as anesthesia should be at bedside shortly. SROM, mod mec also noted. She then started c/o increased pressure, urge to push. SVE, complete/+2. Spontaneously bearing down w/ ctx. FHTs noted to be 70-90s when monitor was adjusted, and pt instructed to take big deep breaths. No resolution of decel, and pt encouraged to push w/ next ctx. Baby noted to be at that time. Delivery occurred shortly after. Placenta delivered spontaneously and intact, trailing membranes were noted. She appeared to be emotionally overwhelmed after delivery and was requesting pain medication for her perineal pain. Given one dose of oxycodone and ibuprofen for pain relief. There was a small 1st degree tear which had some oozing, holding pressure to the site decreased the oozing and the patient did not want to have it repaired. Right periurethral laceration also seen and not repaired. Additional Details Laceration: Perineal - 1st Degree (Perineal - oozng, resolved w/ pressure, no repair. Rt periurethral, not bleeding, not repaired)
[2022-10-16 04:45] VITALS: BP 126/72; PULSE 77; RESP 18; TEMP 36.6; O2SAT 99
[2022-10-16] MEDS: IBUPROFEN 600 MG TABLET PO ×3 (04:48→19:49)
--- NOTE | 2022-10-16 07:41 | PM.OBPNVD1 ---
OB - PN:Subj Subjective Date Seen: 10/16/22 Patient comments OB post-: no complaints, pain well controlled, perineal pain, tolerating diet and flatus present Childwold infant status: Childwold feeding status: exclusively Narrative: Shobha is a 27 y.o. who was admitted to L & D for elective IOL. ?She had an uncomplicated NVD.?The patient feels well but is a little traumatized by how fast her labor progressed. She remembers asking for an epidural and then baby was . She felt she didn't really have time to even know what was happening and then baby was on her abdomen. Overall, she feels a little better about it all today but still reports feeling traumatized by the experience. ?Her pain is well controlled with current medications. ?She has no new complaints. ?She is breast feeding and reports things are going well.? the patient has done well.? Vitals have been stable.? She has remained afebrile.? Has a good appetite, is tolerating a general diet. ?She is voiding without difficulty.? She is passing gas and has not had a bowel movement.? She is ambulating and denies any dizziness.? Has Small amount of rubra lochia. OB - PN: Obj Exam Physical Exam: Vital signs: Temp Pulse Resp BP Pulse Ox O2 Del Method 97.8 F 77 18 126/72 99 Room Air 10/16/22 04:45 10/16/22 04:45 10/16/22 04:45 10/16/22 04:45 10/16/22 04:45 10/16/22 04:45 Narrative: GENERAL APPEARANCE:? normal affect, alert, no distress MOOD:? appropriate CHEST:? clear to auscultation HEART:? regular rate and rhythm ABDOMEN:? soft, non-tender the uterine fundus is At Umbilicus, Midline and is appropriate for the stage of recovery. PERINEUM:? mild edema of the perineum, there is a Perineal Laceration,? 1st degree, that is healing well. EXTREMITIES:? normal and no edema OB - PN: Obj Data Labs Labs: Laboratory Results - last 24 hr 10/15/22 10/16/22 09:56 06:20 Hgb 11.0 L SARS-CoV-2 (PCR) Negative SARS-CoV-2 OB - PN: A/P Vaginal Delivery Assessment and Plan (1) care and examination immediately after delivery: Status: Acute (2) Lactating mother: Status: Acute (3) Anxiety: Status: Acute Plan day: 1 Plan: routine care Comments: Lactating mother. May see if desired. Anxiety. Feeling traumatized by the experience. RN has asked patient advocate to come and see her. May want to consider close follow-up for mood check in. Anticipate discharge tomorrow, 10/17/2022.
[2022-10-16 07:42] VITALS: BP 124/80; PULSE 77; RESP 16; TEMP 36.7; O2SAT 99
[2022-10-16] MEDS: ACETAMINOPHEN 500 MG TABLET 1000 MG PO ×2 (08:22→15:47)
[2022-10-16] MEDS: CALCIUM CARBONATE 500 MG CHEW PO (08:23)
[2022-10-16] MEDS: cephALEXin 500 MG CAPSULE PO ×2 (08:54→19:50)
[2022-10-16] MEDS: DOCUSATE SODIUM 100 MG CAPSULE PO (08:54)
[2022-10-16 13:32] VITALS: BP 113/72; PULSE 80; RESP 16; TEMP 36.7; O2SAT 99
[2022-10-16 15:45] VITALS: BP 138/86; PULSE 90; RESP 16; O2SAT 97
[2022-10-16 20:17] VITALS: BP 125/82; PULSE 93; RESP 16; TEMP 36.7; O2SAT 98
[2022-10-17] MEDS: IBUPROFEN 600 MG TABLET PO (03:13)
[2022-10-17 03:26] VITALS: BP 123/75; PULSE 88; RESP 16; TEMP 36.4; O2SAT 98
--- NOTE | 2022-10-17 08:08 | P.DS_ITS ---
DS: Providers Provider Time Seen by Provider: 08:10 Date Seen: 10/17/22 Date of admission: 10/15/22 08:45 Primary care physician: Britton Johnson MD Admitting Clinician: Yeimy Ott CNM Attending Physician on discharge: Yeimy Ott CNM Date of Discharge: 10/17/22 DS: Diagnosis Discharge Diagnosis (1) care and examination immediately after delivery: Status: Acute (2) Lactating mother: Status: Acute (3) NVD (normal vaginal delivery): Status: Acute (4) Depression: Status: Acute (5) Anxiety: Status: Acute Exam Narrative: Exam Narrative: VSS, afebrile GENERAL APPEARANCE: ?normal affect, alert, no distress MOOD: ?appropriate HEENT: normocephalic, neck supple, full ROM CHEST: ?Symmetrical chest wall movement. ?Normal respiratory effort. ?Clear to auscultation HEART: ?regular rate and rhythm ABDOMEN: ?soft, non-tender. Uterine fundus is firm, 2 below Umbilicus, Midline and is appropriate for the stage of recovery. ?Bowel sounds present. PERINEUM: ?mild edema of the perineum, there is a 1st degree laceration that is healing well. EXTREMITIES: ?normal and +1 edema Const: Vital Signs, click to edit/add: Vital Signs - 24 hr 10/16/22 13:32 10/16/22 15:45 10/16/22 20:17 Temperature 98.0 F 98.0 F Pulse Rate [Pulse Oximeter] 80 90 93 Respiratory Rate 16 16 16 Blood Pressure [Le ft Arm] 113/72 138/86 125/82 Pulse Oximetry 99 97 98 Oxygen Delivery Me thod Room Air Room Air Room Air 10/17/22 03:26 Temperature 97.5 F L Pulse Rate [Pulse Oximeter] 88 Respiratory Rate 16 Blood Pressure [Le ft Arm] 123/75 Pulse Oximetry 98 Oxygen Delivery Me thod Room Air Documenting provider has reviewed patient's vital signs: yes OB - DS: Summary Hospital Course Hospital Course: Shobha is a 27 y.o. G 3 P 3 who was admitted to L & D for elective IOL. ?She had an uncomplicated NVD. She had an unmedicated precipitous , which was very intense for her. She was feeling quite traumatized after this occurred, but is starting to feel a little bit better today. The patient feels well. ?The pain is well controlled with current medications. ?She has no new complaints. ?She is breast feeding and reports things are going well.? the patient has done well.? Vitals have been stable.? She has remained afebrile.? Has a good appetite, is tolerating a general diet. ?She is voiding without difficulty.? She is passing gas and has had a bowel movement.? She is ambulating and denies any dizziness.? Has Small amount of rubra lochia. She is planning partner vasectomy for prevention. She was feeling some chest tightness last night after taking a hot bath. This resolved with using her inhaler. Denies any cardiac symptoms associated with it, or shortness of breath. Reviewed potential fo blood clots and cardiac problems PP. She is aware to be seen if symptoms reoccur, worsen or other symptoms occur. Problems: none plan: Discharge home with baby. Follow up in 2 weeks and 6 weeks. , may follow up with if needed Trauma from unmedicated precipitous . -May follow up with [facility] if needed. Chest tightness last night, resolved with inhaler -continue to monitor. If symptoms reoccur, worsen, or other symptoms occur, she is aware to follow up in the ER. Hx of anxiety and depression -currently off medication. Aware we can restart if needed -has therapist she has seen in the past. Peripartum Data Infant delivery method: Vaginal Laceration description: Perineal - 1st Degree complications: none Infant Gender: Male Discharge Plan: Home Status at Discharge Functional status at discharge: independent ambulation Overall status at discharge: patient is progressing back to baseline Time Spent with Patient Time attestation: Total time spent providing and/or coordinating discharge services: Time spent: Less than 30 minutes Discharge Plan Discharge Disposition: Home, Self-Care Date of Admission: 10/15/22 08:45 Attending Provider on Discharge: Yeimy Ott Primary Care Provider: Britton Johnson Condition: Stable Anticipated Discharge Date/Time: 10/17/22 12:21 Discharge Medications: New docusate sodium 100 mg Capsule 100 mg PO BID PRNQty: 100 0RF Rx Instructions: Take 1 cap 1-2 times a day as needed for constipation. ibuprofen 600 mg Tablet 600 mg PO Q6H PRNQty: 60 0RF Continued cetirizine [Zyrtec] 10 mg tablet 10 mg PO QDAY PRN DHA 200 mg capsule 200 mg PO DAILY magnesium oxide,aspartate,citr 400 mg magnesium capsule 400 mg PO .QD calcium carbonate [Tums] 200 mg calcium (500 mg) tablet,chewable 200 mg PO BID fluticasone propionate [Flonase Allergy Relief] 50 mcg/actuation spray,suspension 1 spray intranasal QDAY PRN Rx Instructions: administer into each nostril docusate sodium [Colace] 100 mg capsule 100 mg PO QDAY cephalexin 500 mg capsule 500 mg PO BID albuterol sulfate 90 mcg/actuation HFA aerosol inhaler 2 puff inhalation Q4H PRN (Reason: shortness of breath or wheezing) Qty: 6.7 2RF Discharge Orders: Discharge Order (Routine); Ordered 10/17/22 Ordered By: Yeimy Ott Patient Education: OB Over the Counter Medication Information, OB Vaginal/Breast Feeding Additional Instructions: Follow up in 2 weeks and 6 weeks Activity Level: Activity as Tolerated Discharge Diet: Regular Follow Up Appointments: Britton Johnson MD [Primary Care Provider] - Forms: [facility] Info Instructions
[2022-10-17 08:23] VITALS: BP 114/82; PULSE 81; RESP 18; TEMP 36.4; O2SAT 98
[2022-10-17] MEDS: DOCUSATE SODIUM 100 MG CAPSULE PO (08:53)
[2022-10-17] MEDS: cephALEXin 500 MG CAPSULE PO (08:53)
[2022-10-17] MEDS: ACETAMINOPHEN 500 MG TABLET 1000 MG PO (08:53)
== END 2022-10-17 11:55 | disposition home or self-care (01) | DRG 807 ==
PROVIDERS: Admitting Provider Advanced Practice Midwife; PCP Family Medicine; Visit Provider Advanced Practice Midwife
DX: O99.344 Other mental disorders complicating childbirth (principal); Z37.0 Single live birth; F41.9 Anxiety disorder, unspecified; F32.A Depression, unspecified; O62.3 Precipitate labor; O77.0 Labor and delivery complicated by meconium in amniotic fluid; O70.0 First degree perineal laceration during delivery; J45.909 Unspecified asthma, uncomplicated; Z79.51 Long term (current) use of inhaled steroids; Z86.32 Personal history of gestational diabetes; Z86.79 Personal history of other diseases of the circulatory system; Z3A.39 39 weeks gestation of pregnancy
CPT/HCPCS: 36415; 59200; 85018; 87635; A9270; J2370; J3010; J7120

== ENCOUNTER 2023-04-02 11:30 | Outpatient (CLI) | payer OTHER, SELFPAY | END 2023-04-02 11:31 | disposition home or self-care (01) | PROVIDERS: PCP Family Medicine; Visit Provider Family Medicine | DX: R10.11 Right upper quadrant pain (principal); R63.5 Abnormal weight gain; Z13.29 Encounter for screening for other suspected endocrine disorder | CPT/HCPCS: 80076; 82784; 84443; 86364 ==

== ENCOUNTER 2023-04-10 07:06 | Outpatient (CLI) | payer OTHER, SELFPAY ==
--- NOTE | 2023-04-10 07:15 | CRLHL7_ITS ---
For Patients: As a result of the Century Cures Act, medical imaging exams and procedure reports are released immediately into your electronic medical record. You may view this report before your referring provider. If you have questions, please contact your health care provider. INDICATION: Right upper quadrant pain COMPARISON: none TECHNIQUE: Real time rodriguez scale imaging and color Doppler analysis was performed of the right upper quadrant. FINDINGS: The patient`s liver is of normal size and has uniform echogenicity. There is a normal appearance of the hepatic IVC and proximal abdominal aorta. There is no evidence of ascites. The gallbladder is absent. The common bile duct is of normal size and measures 5 mm in diameter at the level of the marcelino hepatis. The pancreas appears normal. There is no evidence of a stone or hydronephrosis within the right kidney. The right kidney measures 11.0 cm in length. IMPRESSION: Status post cholecystectomy. Otherwise unremarkable. Dictated by Alexey Lyn MD @ 04/10/2023 8:55:24 AM (Electronically Signed)
== END 2023-04-10 07:07 | disposition home or self-care (01) ==
LOC: US 07:06
PROVIDERS: PCP Family Medicine; Visit Provider Family Medicine
DX: R10.11 Right upper quadrant pain (principal)
CPT/HCPCS: 76705

== ENCOUNTER 2023-09-13 10:35 | Outpatient (CLI) | payer OTHER, SELFPAY | END 2023-09-13 10:36 | disposition home or self-care (01) | PROVIDERS: PCP Family Medicine; Visit Provider Family Medicine | DX: R10.811 Right upper quadrant abdominal tenderness (principal); R63.4 Abnormal weight loss | CPT/HCPCS: 80053; 86140 ==

== ENCOUNTER 2023-09-20 07:25 | Outpatient (CLI) | payer OTHER, SELFPAY ==
--- NOTE | 2023-09-20 08:00 | CT_ITS ---
Patient: CARRIE KUO Facility:?[facility] Patient ID:?[id number] Site Patient ID:?[id number]. Site :?[id number] Study:?CT-Abdomen/Pelvis W/IV &WATER-09/20/2023 8:36:52 AM Ordering Physician:HAMMAD Final Report: Indication: EPIGASTRIC MID ABDOMEN PAIN FOR 9 MONTHS , WEIGHT LOSS 20LBS Technique: CT ABDOMEN PELVIS WITH ISOVUE 370 98CC CONTRAST AND WATER PREP USED Please note that all CT scans at this facility use dose modulation, iterative reconstruction, and/or weight-based dosing when appropriate to reduce radiation dose to as low as reasonably achievable. Comparison: Ultrasound 04/10/2023 Findings: Lung bases are clear. Postop changes of cholecystectomy. No intrahepatic mass. Spleen is normal. No hiatal hernia. Adrenal glands are normal. Normal kidneys. Normal pancreas. The bladder is normal. Normal uterus. Unremarkable ovaries. No adenopathy. No free air or free fluid. No abscess. Terminal ileum is unremarkable. Appendicolith incidentally noted within a otherwise normal appendix. Bulging of the disc at L4-5. Impression: Normal CT of the small bowel and large bowel without inflammatory changes or bowel obstruction. Mild bulging of the disc at L4-5, correlate with any neurologic symptoms. Please note that all CT scans at this facility use dose modulation, iterative reconstruction, and/or weight-based dosing when appropriate to reduce radiation dose to as low as reasonably achievable. Dictated by Alexey Lyn MD @ 09/20/2023 10:52:54 AM Signed by:?Alexey Lyn MD @09/20/2023 10:52:54 AM (Electronic Signature)
== END 2023-09-20 07:26 | disposition home or self-care (01) ==
LOC: CT 07:27
PROVIDERS: PCP Family Medicine; Visit Provider Family Medicine
DX: R10.9 Unspecified abdominal pain (principal); M51.26 Other intervertebral disc displacement, lumbar region; R63.4 Abnormal weight loss
CPT/HCPCS: 74177; Q9967

== ENCOUNTER 2023-10-01 07:50 | Outpatient (CLI) | payer OTHER, SELFPAY ==
[2023-10-01 08:26] LABS: Ur HCG Qualitative* Negative (Negative)
--- NOTE | 2023-10-01 08:49 | W.ANESCHARGE ---
Anesthesia Charges Start Date/Time Anesthesia Start Date: 10/01/23 Anesthesia Start Time: 09:22 Stop Date/Time Anesthesia Stop Date: 10/01/23 Anesthesia Stop Time: 09:55
--- NOTE | 2023-10-01 09:56 | W.ANESCHARGE ---
Anesthesia Charges Start Date/Time Anesthesia Start Date: 10/01/23 Anesthesia Start Time: 09:22 Stop Date/Time Anesthesia Stop Date: 10/01/23 Anesthesia Stop Time: 09:55
== END 2023-10-01 07:51 | disposition home or self-care (01) ==
LOC: OP CLINIC 07:51
PROVIDERS: PCP Family Medicine; Visit Provider Surgery
DX: R10.11 Right upper quadrant pain (principal)
CPT/HCPCS: 00811; 45380; 81025; 88305; J2704

== ENCOUNTER 2023-12-05 08:43 | Outpatient (CLI) | payer OTHER, SELFPAY | END 2023-12-05 08:44 | disposition home or self-care (01) | LOC: NFLDREF 12-22 23:28 | PROVIDERS: PCP Family Medicine; Referring Provider Family Medicine; Visit Provider Nurse Practitioner | DX: R19.7 Diarrhea, unspecified (principal) | CPT/HCPCS: 87493; 87505 ==

== ENCOUNTER 2023-12-10 11:59 | Outpatient (CLI) | payer OTHER, SELFPAY | END 2023-12-10 12:00 | disposition home or self-care (01) | PROVIDERS: PCP Family Medicine; Visit Provider Physician Assistant | DX: Z01.419 Encounter for gynecological examination (general) (routine) without abnormal findings (principal); N64.4 Mastodynia; N64.52 Nipple discharge; Z13.6 Encounter for screening for cardiovascular disorders; Z13.29 Encounter for screening for other suspected endocrine disorder; Z13.1 Encounter for screening for diabetes mellitus; Z12.4 Encounter for screening for malignant neoplasm of cervix | CPT/HCPCS: 80061; 82947; 84146; 84443 ==

== ENCOUNTER 2024-02-06 11:15 | Outpatient (CLI) | payer OTHER, SELFPAY | END 2024-02-06 11:16 | disposition home or self-care (01) | LOC: NFLDREF 11:16 | PROVIDERS: PCP Family Medicine; Visit Provider Physician Assistant | DX: R39.15 Urgency of urination (principal) | CPT/HCPCS: 87086 ==

== ENCOUNTER 2024-04-16 18:51 | Emergency (ER) | payer OTHER, SELFPAY ==
[2024-04-16 19:38] VITALS: BP 125/86; PULSE 82; RESP 16; TEMP 36.5; O2SAT 99; BMI 30.9
--- NOTE | 2024-04-16 20:22 | ED_ITS ---
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 Patient notes that she has previously been worked up for right upper quadrant pain with a colonoscopy in September of this year that was reassuring. She had her gallbladder out at the age of 16. She notes that for the past few days the right upper quadrant discomfort has returned and she has had more GERD in the past few weeks. Yesterday however she had a normal formed stool with blood in it and on it. She has a history of hemorrhoids but notes no pain or itching that she would normally experience. She had no lower abdominal discomfort. Today that same thing happened again. Only 1 stool yesterday and today. No nausea or vomiting or fever has been noted. Patient did note feeling shaky 48 hours ago and attributed this to a recent increase in her medication Prozac from 30 mg to 40 mg. She did get permission to degrees to 30 mg 48 hours ago and 24 hours prior to the 1st bloody stool. She denies a history of ibuprofen use. She is not currently on a PPI or H2 adán. Patient feels very fatigued and endorses some shortness of breath when climbing steps. No personal history of ulcerative colitis or Crohn's. No family history of the same. She notes that she also got her. Early today. Related Data Home Medications ?Medication ?Instructions ?Recorded ?Confirmed cetirizine 10 mg tablet (Zyrtec) 10 mg PO QDAY PRN 02/06/24 03/10/24 magnesium glycinate 200 mg PO 02/06/24 03/10/24 Previous Rx's ?Medication ?Instructions ?Recorded fluoxetine 10 mg capsule 10 mg PO QDAY #30 caps 04/14/24 fluoxetine 20 mg capsule 20 mg PO QDAY #30 caps 04/14/24 Allergies Allergy/AdvReac Type Severity Reaction Status Date / Time epinephrine Allergy Intermediate Racing Verified 03/10/24 14:09 heart Sulfa (Sulfonamide Allergy Intermediate Hives Verified 03/10/24 14:09 Antibiotics) amoxicillin Allergy Unknown Verified 03/10/24 14:09 ciprofloxacin Allergy Unknown Verified 03/10/24 14:09 clavulanic acid Allergy Hives Verified 03/10/24 14:09 Review of Systems Status of ROS: Reports: 10 or more systems reviewed and unremarkable except as noted in History and below Const: Reports: fatigue; Denies: fever or chills Eyes: Denies: change in vision ENMT: Denies: neck pain or nasal congestion Cardio: Reports: shortness of breath with exertion; Denies: chest pain, palpitations, edema, swelling of feet/ankles or lightheadedness Resp: Reports: shortness of breath; Denies: cough or wheezing GI: Reports: abdominal pain and blood in stool; Denies: nausea, vomiting or diarrhea : Denies: painful urination or urinary frequency Musculo: Denies: back pain or neck pain Endo: Reports: fatigue Allergy/Immuno: Denies: wheezing PFSH PFSH Medical History History of gestational diabetes ?Z86.32 - Personal history of gestational diabetes (ICD-10) Surgical History History of ovarian cystectomy ?Z98.890 - Other specified postprocedural states (ICD-10) ?Z87.42 - Personal history of other diseases of the female genital tract (ICD-10) Status post cholecystectomy ?Z90.49 - Acquired absence of other specified parts of digestive tract (ICD- 10) Family History Family/Other Diabetes Paternal Grandfather Diabetes Mother Breast cancer High blood pressure Uterine cancer Father High blood pressure Brother ADHD Aunt Ovarian cancer Social History Narrative: SOCIAL Education: college degree Work: [employer] Partner: Praneeth, clinical research associate 3 kids Nonsmoker, no alcohol use What is your current living situation?: I presently have a place to live Problems where you live: no known problems In the past 12 months, utilities in danger of being shut off: no In past 12 months, lack of transportation kept you from medical appts, meetings, work, or getting things needed for daily living: no In the past 12 mos, have been you worried that your food would run out before you had money to buy more?: never true In the past 12 mos, the food you bought just didn't last and you didn't have money to buy more?: never true Smoking Status: Never smoker Do you use any of these nicotine containing products: None Second hand tobacco smoke exposure: No How often do you have a drink containing alcohol: never How often do you have six or more drinks on one occasion: Never AUDIT-C Alcohol total score: 0 Non-prescribed substance use: denies use How often does anyone, including family, friends and others, physically hurt you : never How often does anyone, including family, friends and others, insult or talk down to you: never How often does anyone, including family, friends and others, threaten you with harm: never How often does anyone, including family, friends and others, scream or curse at you: never Little interest or pleasure in doing things: not at all Feeling down, depressed, or hopeless: not at all service: No Exam Narrative: Exam Narrative: Alert and oriented. Very pleasant. Slightly fatigued in appearance but nontoxic. Color is appropriate. Mentation normal speech normal. Head is atraumatic. Heart with regular rate and rhythm. Lungs are clear to auscultation. Abdomen is soft nontender. No masses are palpated. Lower extremities without edema. Moving all extremities No evidence of hemorrhoids or blood around the anus. Digital exam does not reveal any blood nor did it reveal any stool. There it did not appear to be excessive discomfort with digital exam. Const: Vital Signs, click to edit/add: Vital Signs - 24 hr 04/16/24 19:38 Temperature 97.7 F Pulse Rate [Pulse Oximeter] 82 Respiratory Rate 16 Blood Pressure [Ri ght Upper Arm] 125/86 Pulse Oximetry 99 Oxygen Delivery Me thod Room Air Documenting provider has reviewed patient's vital signs: yes Course Course ED Course: Differential diagnosis includes but is not limited to proctitis, AVM malformation, colitis, diverticulitis, internal hemorrhoid, gastritis. At this time will place IV and do labs include CBC, comprehensive panel, CRP, hCG serum. I do think we should have patient go through CT scanner with her complaints of pain and blood in her stool. Will give her 1 L of normal saline. Reevaluation(s) Reevaluation #1: For patient received 1 L normal saline. Is feeling the same. Vital Signs Vital signs: Initial Vital Signs Temperature 97.7 F 04/16/24 19:38 Temperature Source Temporal Artery Scan 04/16/24 19:38 Pulse Rate 82 04/16/24 19:38 Respiratory Rate 16 04/16/24 19:38 Blood Pressure 125/86 04/16/24 19:38 Blood Pressure Mean 99 04/16/24 19:38 Blood Pressure Position Sitting 04/16/24 19:38 Pulse Oximetry 99 04/16/24 19:38 Oxygen Delivery Method Room Air 04/16/24 19:38 Vital Signs Temperature 97.7 F 04/16/24 19:38 Pulse Rate 82 04/16/24 19:38 Respiratory Rate 16 04/16/24 19:38 Blood Pressure 125/86 04/16/24 19:38 Pulse Oximetry 99 04/16/24 19:38 Oxygen Delivery Method Room Air 04/16/24 19:38 Temperature 97.7 F 04/16/24 19:38 Pulse Rate 82 04/16/24 19:38 Respiratory Rate 16 04/16/24 19:38 Blood Pressure 125/86 04/16/24 19:38 Pulse Oximetry 99 04/16/24 19:38 Oxygen Delivery Method Room Air 04/16/24 19:38 Medications Administered Medications: Generic Name Dose Route Start Last Admin Trade Name Freq PRN Reason Stop Dose Admin Omeprazole 40 mg 04/16/24 22:24 04/16/24 22:27 Omeprazole [address] PO 04/16/24 22:25 40 mg ONCE ONE Administration Discontinued Medications Generic Name Dose Route Start Last Admin Trade Name Freq PRN Reason Stop Dose Admin Sodium Chloride 1,000 mls @ 1,000 mls/hr 04/16/24 20:33 04/16/24 22:28 0.9 % Sodium Chloride 1000 Ml IV 04/16/24 21:32 Infused .Q1H JOSE ANTONIO Infusion MDM - GI Bleed MDM Narrative Medical decision making narrative: 1. GI bleed-at this time CT is reassuring with no evidence of colitis, inflammation. Hemoglobin 13.6. No further episodes of bleeding. Recommend follow-up with primary MD for recheck. Of course for worsening symptoms return to the emergency room. Omeprazole 40 mg p.o. was given in the ER prior to discharge. Would like patient to continue 20 mg daily for the next 2 weeks. 2. Disposition-home at this time. Return for worsening symptoms. Medical Records Attestation: I reviewed the patient's medical records. Lab Data Attestation: I reviewed the patient's lab results. Labs: Lab Results 04/16/24 Range/Units 20:40 WBC 8.78 (4.50-11.00) K/uL RBC 4.66 (4.00-5.20) m/uL Hgb 13.6 (12.0-16.0) gm/dL Hct 41.9 (33.0-51.0) % MCV 90 (80-100) fL MCH 29 (26-34) pg MCHC 33 (32-36) gm/dL RDW Coeff of Jonathan 13.1 (11.5-15.5) % Plt Count 280 (140-440) K/uL Neut % (Auto) 50.6 (42.0-72.0) % Lymph % (Auto) 38.0 (20-44) % [place] % (Auto) 6.2 (0.0-11.0) % Eos % (Auto) 4.8 (0.0-7.0) % Baso % (Auto) 0.3 (0.0-3.0) % Neut # (Auto) 4.44 (1.7-7.0) K/uL Lymph # (Auto) 3.34 H (0.90-2.90) K/uL [place] # (Auto) 0.50 (0.00-0.90) K/UL Eos # (Auto) 0.42 (0.00-0.50) K/uL Baso # (Auto) 0.03 (0.00-0.30) K/uL Abs Immat Gran (auto) 0.01 (0.00-0.30) K/uL Imm/Tot Granulo (auto) 0.1 % Sodium 139 (135-149) mmol/L Potassium 3.9 (3.6-5.1) mmol/L Chloride 103 (96-114) mmol/L Carbon Dioxide 27 (20-32) mmol/L Anion Gap 9 (7-15) mEq/L BUN 11 (5-24) mg/dL Creatinine 0.6 (0.5-1.5) mg/dL Estimated Creat Clear 121.62 Estimated GFR 126 ml/min Glucose 77 (60-115) mg/dL Calcium 9.3 (8.4-10.6) mg/dL Total Bilirubin 0.2 (0.1-1.5) mg/dL AST 21 (12-35) U/L ALT 13 (4-35) U/L Alkaline Phosphatase 78 (40-150) U/L C-Reactive Protein 0.5 (0.5-1.0) mg/dL Total Protein 7.8 (6.0-8.3) g/dL Albumin 4.6 (3.3-5.0) g/dL Imaging Data CT scan - abdomen: Attestation: I have reviewed the pertinent imaging results. My impression: I do not note any acute findings. Radiologist's impression: Lower chest: Unremarkable. Liver: Unremarkable. Normal in size and attenuation. No suspicious masses. Gallbladder and bile ducts: Cholecystectomy. No biliary dilatation. Pancreas: Unremarkable. No mass or inflammation. Spleen: Unremarkable. Normal in size. No masses. Adrenal glands: Unremarkable. No nodules. Kidneys: Unremarkable. No suspicious masses, stones, or hydronephrosis. GI tract: Unremarkable. Normal in caliber. No sign of mass or inflammation. Normal appendix. Vasculature: Abdominal aorta is normal in caliber. Mesenteric arteries are patent. Lymph nodes: No lymphadenopathy. Peritoneum/Abdominal Wall: Unremarkable. No sign of mass or infiltration. No free air or significant free fluid. Pelvis: Unremarkable. Bones: No acute or suspicious osseous abnormalities age. IMPRESSION: No evident acute abnormalities in the abdomen or pelvis. Discharge Plan Discharge Clinical Impression: Acute GI bleeding Patient Disposition: Home, Self-Care Condition: Unchanged Additional Instructions: Suggest starting omeprazole 20 mg daily. Your 1st dose is given tonight. Follow-up with your primary MD for recheck. Return to the emergency room for worsening symptoms. Prescriptions: No Action magnesium glycinate 100 mg magnesium capsule 200 mg PO cetirizine [Zyrtec] 10 mg tablet 10 mg PO QDAY PRN fluoxetine 20 mg capsule 20 mg PO QDAY Qty: 30 0RF fluoxetine 10 mg capsule 10 mg PO QDAY Qty: 30 0RF Rx Instructions: Take one capsule daily with 20mg to equal 30mg dose. Follow Up/Referrals: Britton Johnson MD [Primary Care Provider] - Stand Alone Forms: [employer] Info Instructions
--- NOTE | 2024-04-16 20:32 | CRLHL7_ITS ---
For Patients: As a result of the Century Cures Act, medical imaging exams and procedure reports are released immediately into your electronic medical record. You may view this report before your referring provider. If you have questions, please contact your health care provider. INDICATION: Bloody stools, right upper quadrant pain. TECHNIQUE: CT abdomen and pelvis acquired with 88 cc Isovue 370 IV contrast. COMPARISON: None. FINDINGS: Lower chest: Unremarkable. Liver: Unremarkable. Normal in size and attenuation. No suspicious masses. Gallbladder and bile ducts: Cholecystectomy. No biliary dilatation. Pancreas: Unremarkable. No mass or inflammation. Spleen: Unremarkable. Normal in size. No masses. Adrenal glands: Unremarkable. No nodules. Kidneys: Unremarkable. No suspicious masses, stones, or hydronephrosis. GI tract: Unremarkable. Normal in caliber. No sign of mass or inflammation. Normal appendix. Vasculature: Abdominal aorta is normal in caliber. Mesenteric arteries are patent. Lymph nodes: No lymphadenopathy. Peritoneum/Abdominal Wall: Unremarkable. No sign of mass or infiltration. No free air or significant free fluid. Pelvis: Unremarkable. Bones: No acute or suspicious osseous abnormalities age. IMPRESSION: No evident acute abnormalities in the abdomen or pelvis. Please note that all CT scans at this facility use dose modulation, iterative reconstruction, and/or weight-based dosing when appropriate to reduce radiation dose to as low as reasonably achievable. Dictated by Giovanni Boyle MD @ 04/16/2024 10:18:21 PM (Electronically Signed)
[2024-04-16] MEDS: 0.9 % SODIUM CHLORIDE 1000 ml 1,000 ML IV (20:45)
[2024-04-16 20:46] LABS: Basophils Absolute Auto 0.03 K/uL (0.00-0.30); Basophils Percent Auto 0.3 % (0.0-3.0); Eosinophils Absolute Auto 0.42 K/uL (0.00-0.50); Eosinophils Percent Auto 4.8 % (0.0-7.0); Hematocrit 41.9 % (33.0-51.0); Hemoglobin* 13.6 gm/dL (12.0-16.0); Immature Granulocytes Abs Auto 0.01 K/uL (0.00-0.30); Immature Granulocytes Pct Auto 0.1 %; Lymphocytes Absolute Auto 3.34 K/uL (0.90-2.90); Mean Corpuscular HGB Conc 33 gm/dL (32-36); Mean Corpuscular Hemoglobin 29 pg (26-34); Mean Corpuscular Volume 90 fL (80-100); Monocytes Percent Auto 6.2 % (0.0-11.0); Neutrophils Absolute Auto 4.44 K/uL (1.7-7.0); Neutrophils Percent Auto 50.6 % (42.0-72.0); Platelet Count* 280 K/uL (140-440); RDW Coefficient of Variation % 13.1 % (11.5-15.5); Red Blood Count 4.66 m/uL (4.00-5.20); White Blood Count* 8.78 K/uL (4.50-11.00)
[2024-04-16 20:53] LABS: Slide Review Reflex No
[2024-04-16 20:58] LABS: Albumin* 4.6 g/dL (3.3-5.0); Chloride* 103 mmol/L (96-114); Potassium* 3.9 mmol/L (3.6-5.1); Sodium* 139 mmol/L (135-149)
[2024-04-16 21:00] LABS: Creatinine* 0.6 mg/dL (0.5-1.5); Est. Creatinine Clearance* 121.62; Estimated Glomerular Filt Rate 126 ml/min
[2024-04-16 21:01] LABS: Alanine Aminotransferase* 13 U/L (4-35); Alkaline Phosphatase* 78 U/L (40-150); Anion Gap 9 mEq/L (7-15); Aspartate Amino Transferase* 21 U/L (12-35); Bilirubin Total* 0.2 mg/dL (0.1-1.5); Blood Urea Nitrogen* 11 mg/dL (5-24); Carbon Dioxide* 27 mmol/L (20-32); Glucose* 77 mg/dL (60-115); Total Protein* 7.8 g/dL (6.0-8.3)
[2024-04-16 21:02] LABS: Calcium* 9.3 mg/dL (8.4-10.6)
[2024-04-16 21:04] LABS: C Reactive Protein* 0.5 mg/dL (0.5-1.0)
[2024-04-16 22:00] VITALS: BP 118/76; PULSE 76; RESP 16; O2SAT 98
[2024-04-16] MEDS: OMEPRAZOLE 20 MG CAPSULE DR 40 MG PO (22:27)
== END 2024-04-16 22:30 | disposition home or self-care (01) ==
PROVIDERS: Emergency Provider Family Medicine; PCP Family Medicine
DX: K92.2 Gastrointestinal hemorrhage, unspecified (principal)
CPT/HCPCS: 36415; 74177; 80053; 85025; 86140; 96360; 99284; 99285; A9270; J7030; Q9967

== ENCOUNTER 2024-10-08 20:40 | Emergency (ER) | payer OTHER, SELFPAY ==
[2024-10-08 20:44] VITALS: BP 121/82; PULSE 93; RESP 15; TEMP 36.2; O2SAT 99; BMI 32.1
[2024-10-08 22:30] LABS: Appearance Urine Clear (Clear); Bilirubin Urine Negative (Negative); Blood Urine Trace-intact (Negative); Color Urine Yellow (Yellow); Glucose Urine Negative (Negative); Ketones Urine Negative (Negative); Leukocyte Esterase Urine Negative (Negative); Nitrite Urine Negative (Negative); Protein Urine Negative (Negative); Urobilinogen Urine 0.2 (0.2-1.0)
[2024-10-08 22:37] LABS: RBC Urine 0-2 (0-2); Squamous Epithelial Cell Urine Few (None-Few); WBC Urine 0-2 (0-5)
[2024-10-08 22:38] LABS: Ur HCG Qualitative* Negative (Negative)
[2024-10-08 22:45] LABS: Albumin* 4.5 g/dL (3.3-5.0); Chloride* 105 mmol/L (96-114); Sodium* 141 mmol/L (135-149)
[2024-10-08 22:46] LABS: Potassium* 3.6 mmol/L (3.6-5.1)
[2024-10-08 22:48] LABS: Alanine Aminotransferase* 17 U/L (4-35); Alkaline Phosphatase* 52 U/L (40-150); Anion Gap 8 mEq/L (7-15); Aspartate Amino Transferase* 23 U/L (12-35); Basophils Absolute Auto 0.04 K/uL (0.00-0.30); Basophils Percent Auto 0.4 % (0.0-3.0); Bilirubin Total* 0.3 mg/dL (0.1-1.5); Blood Urea Nitrogen* 14 mg/dL (5-24); Carbon Dioxide* 28 mmol/L (20-32); Creatinine* 0.7 mg/dL (0.5-1.5); Eosinophils Absolute Auto 0.22 K/uL (0.00-0.50); Eosinophils Percent Auto 2.3 % (0.0-7.0); Est. Creatinine Clearance* 103.32; Estimated Glomerular Filt Rate 121 ml/min; Hematocrit 41.3 % (33.0-51.0); Hemoglobin* 13.5 gm/dL (12.0-16.0); Immature Granulocytes Abs Auto 0.01 K/uL (0.00-0.30); Immature Granulocytes Pct Auto 0.1 %; Lipase* 174 U/L (23-300); Lymphocytes Absolute Auto 4.04 K/uL (0.90-2.90); Lymphocytes Percent Auto 41.9 % (20-44); Mean Corpuscular HGB Conc 33 gm/dL (32-36); Mean Corpuscular Hemoglobin 30 pg (26-34); Mean Corpuscular Volume 91 fL (80-100); Monocytes Percent Auto 6.4 % (0.0-11.0); Neutrophils Absolute Auto 4.72 K/uL (1.7-7.0); Neutrophils Percent Auto 48.9 % (42.0-72.0); Platelet Count* 266 K/uL (140-440); RDW Coefficient of Variation % 12.9 % (11.5-15.5); Red Blood Count 4.54 m/uL (4.00-5.20); Total Protein* 7.5 g/dL (6.0-8.3); White Blood Count* 9.65 K/uL (4.50-11.00)
[2024-10-08 22:49] LABS: Calcium* 9.1 mg/dL (8.4-10.6); Glucose* 72 mg/dL (60-115)
[2024-10-08 22:52] LABS: Slide Review Reflex No
--- NOTE | 2024-10-08 23:03 | ED.ABDPAIN ---
HPI - Abdominal Pain General Date Seen: 10/08/24 Chief Complaint: Abdominal Pain Stated Complaint: Upper abdominal pain Time Seen by Provider: 10/08/24 22:02 History of Present Illness HPI narrative: Patient is a 29-year-old female who presents to the emergency department for evaluation of abdominal pain. Patient reports that symptoms started on Saturday. Patient complains of upper abdominal pain which she describes as a bloating sensation as well as a cramping sensation associated with nausea. Patient reports ongoing intermittent dull achy pain with occasional sharp cramping pain associated with nausea but denies any vomiting. Patient reports pain is worse after eating and states that it did get worse tonight after eating [employer]. Patient denies any fever, chills, chest pain, shortness of breath. Denies any diarrhea, dysuria, no vaginal bleeding. Patient reports history of having cholecystectomy in the past. Patient has had similar episodes in the pain in the past and has had CT scan and colonoscopy with no etiology of symptoms. Patient recently got restarted on her omeprazole. Related Data Home Medications ?Medication ?Instructions ?Recorded ?Confirmed cetirizine 10 mg tablet (Zyrtec) 10 mg PO QDAY PRN 02/06/24 09/11/24 omeprazole 20 mg capsule,delayed 20 mg PO DAILY 10/08/24 10/08/24 release Previous Rx's ?Medication ?Instructions ?Recorded fluoxetine 20 mg capsule 20 mg PO DAILY #90 caps 09/11/24 Allergies Allergy/AdvReac Type Severity Reaction Status Date / Time Sulfa (Sulfonamide Allergy Intermediate Hives Verified 10/08/24 20:49 Antibiotics) amoxicillin Allergy Unknown Verified 10/08/24 20:49 ciprofloxacin Allergy Unknown Verified 10/08/24 20:49 clavulanic acid Allergy Hives Verified 10/08/24 20:49 epinephrine AdvReac Intermediate Racing Verified 10/08/24 20:49 heart Review of Systems Status of ROS Reports: 10 or more systems reviewed and unremarkable except as noted in History and below [facility] Medical History Irritable bowel syndrome ?K58.9 - Irritable bowel syndrome without diarrhea (ICD-10) Seasonal allergies ?J30.2 - Other seasonal allergic rhinitis (ICD-10) Asthma ?J45.909 - Unspecified asthma, uncomplicated (ICD-10) Anxiety ?F41.9 - Anxiety disorder, unspecified (ICD-10) Depression ?F32.A - Depression, unspecified (ICD-10) Family history of breast cancer ?Z80.3 - Family history of malignant neoplasm of breast (ICD-10) History of gestational diabetes ?Z86.32 - Personal history of gestational diabetes (ICD-10) Surgical History History of ovarian cystectomy ?Z98.890 - Other specified postprocedural states (ICD-10) ?Z87.42 - Personal history of other diseases of the female genital tract (ICD-10) Status post cholecystectomy ?Z90.49 - Acquired absence of other specified parts of digestive tract (ICD-10) Family History Family/Other Diabetes Paternal Grandfather Diabetes Mother Breast cancer High blood pressure Uterine cancer Father High blood pressure Brother ADHD Aunt Ovarian cancer Social History Narrative: SOCIAL Education: college degree Work: [employer] Partner: Praneeth, clinical research associate 3 kids Nonsmoker, no alcohol use What is your current living situation?: I presently have a place to live Problems where you live: no known problems In the past 12 months, utilities in danger of being shut off: no In past 12 months, lack of transportation kept you from medical appts, meetings, work, or getting things needed for daily living: no In the past 12 mos, have been you worried that your food would run out before you had money to buy more?: never true In the past 12 mos, the food you bought just didn't last and you didn't have money to buy more?: never true Smoking Status: Never smoker Do you use any of these nicotine containing products: None Second hand tobacco smoke exposure: No How often do you have a drink containing alcohol: never How often do you have six or more drinks on one occasion: Never AUDIT-C Alcohol total score: 0 Non-prescribed substance use: denies use How often does anyone, including family, friends and others, physically hurt you: never How often does anyone, including family, friends and others, insult or talk down to you: never How often does anyone, including family, friends and others, threaten you with harm: never How often does anyone, including family, friends and others, scream or curse at you: never service: No Exam Narrative: Exam Narrative: General: Afebrile, no acute distress HEENT: Normocephalic, atraumatic, conjunctiva normal. MMM Neck: non-tender, supple Cardio: regular rate. regular rhythm Resp: Normal work of breathing, no respiratory distress, lungs clear bilaterally, no wheezing, rhonchi, rales Chest/Back: no visual signs of trauma, no midline tenderness, no CVA tenderness Abdomen: soft, non distension, mild TTP epigastric region, no rebound, no gaurding, no peritoneal signs Neuro: alert and fully oriented. CN II-XII grossly intact. Grossly normal strength and sensation in all extremities. MSK: no deformities. Normal range of motion Integumentary/Skin: no rash visualized, normal color Psych: normal affect, normal behavior Const: Vital Signs, click to edit/add: Vital Signs - 24 hr 10/08/24 20:44 Temperature 97.2 F L Pulse Rate [Pulse Oximeter] 93 Respiratory Rate 15 Blood Pressure [Ri ght Upper Arm] 121/82 Pulse Oximetry 99 Oxygen Delivery Me thod Room Air Course Course ED Course: 29 yo female here with intermittent abdominal pain for the past 5 days. Upon arrival patient is nontoxic appearing, afebrile, in distress. Patient hemodynamically stable vital signs within normal limits. Differential diagnosis includes but is not limited to gastritis versus gastroenteritis versus peptic ulcer disease versus esophageal reflux versus pancreatitis versus biliary colic versus retained stone versus infectious among others. Upon arrival patient declined anything for her symptoms/pain. Comprehensive labs, urinalysis performed. Comprehensive labs remarkable for white blood cell count 9.6, hemoglobin 13.5, no acute metabolic electrolyte abnormality, no transaminitis, normal lipase, urinalysis with no evidence of acute infection. I discussed results with patient. No clear evidence acute infection, no leukocytosis, overall patient is nontoxic-appearing and has abdomen is soft, nontender. Patient has history of cholecystectomy. I did discuss results with patient and patient would like to proceed with further evaluation with CT imaging. I personally reviewed interpreted CT scan of the abdomen pelvis which was unremarkable with no acute findings. Discussed results with patient and family. At this time no clear etiology of patient's symptoms. Overall patient is nontoxic appearing, afebrile, no evidence of acute infection. I do recommend close outpatient follow-up with primary care provider as well as GI for possible endoscopy. Recommend continuation of her omeprazole. Patient understands and agrees the plan. Strict return precautions discussed. Vital Signs Vital signs: Initial Vital Signs Temperature 97.2 F L 10/08/24 20:44 Temperature Source Temporal Artery Scan 10/08/24 20:44 Pulse Rate 93 10/08/24 20:44 Respiratory Rate 15 10/08/24 20:44 Blood Pressure 121/82 10/08/24 20:44 Blood Pressure Mean 95 10/08/24 20:44 Blood Pressure Position Sitting 10/08/24 20:44 Pulse Oximetry 99 10/08/24 20:44 Oxygen Delivery Method Room Air 10/08/24 20:44 Vital Signs Temperature 97.2 F L 10/08/24 20:44 Pulse Rate 93 10/08/24 20:44 Respiratory Rate 15 10/08/24 20:44 Blood Pressure 121/82 10/08/24 20:44 Pulse Oximetry 99 10/08/24 20:44 Oxygen Delivery Method Room Air 10/08/24 20:44 Temperature 97.2 F L 10/08/24 20:44 Pulse Rate 93 10/08/24 20:44 Respiratory Rate 15 10/08/24 20:44 Blood Pressure 121/82 10/08/24 20:44 Pulse Oximetry 99 10/08/24 20:44 Oxygen Delivery Method Room Air 10/08/24 20:44 MDM - Abdominal Pain Lab Data Labs: Lab Results 10/08/24 10/08/24 Range/Units 22:09 22:20 WBC 9.65 (4.50-11.00) K/uL RBC 4.54 (4.00-5.20) m/uL Hgb 13.5 (12.0-16.0) gm/dL Hct 41.3 (33.0-51.0) % MCV 91 (80-100) fL MCH 30 (26-34) pg MCHC 33 (32-36) gm/dL RDW Coeff of Jonathan 12.9 (11.5-15.5) % Plt Count 266 (140-440) K/uL Neut % (Auto) 48.9 (42.0-72.0) % Lymph % (Auto) 41.9 (20-44) % Ashley % (Auto) 6.4 (0.0-11.0) % Eos % (Auto) 2.3 (0.0-7.0) % Baso % (Auto) 0.4 (0.0-3.0) % Neut # (Auto) 4.72 (1.7-7.0) K/uL Lymph # (Auto) 4.04 H (0.90-2.90) K/uL Ashley # (Auto) 0.60 (0.00-0.90) K/UL Eos # (Auto) 0.22 (0.00-0.50) K/uL Baso # (Auto) 0.04 (0.00-0.30) K/uL Abs Immat Gran (auto) 0.01 (0.00-0.30) K/uL Imm/Tot Granulo (auto) 0.1 % Sodium 141 (135-149) mmol/L Potassium 3.6 (3.6-5.1) mmol/L Chloride 105 (96-114) mmol/L Carbon Dioxide 28 (20-32) mmol/L Anion Gap 8 (7-15) mEq/L BUN 14 (5-24) mg/dL Creatinine 0.7 (0.5-1.5) mg/dL Estimated Creat Clear 103.32 Estimated GFR 121 ml/min Glucose 72 (60-115) mg/dL Calcium 9.1 (8.4-10.6) mg/dL Total Bilirubin 0.3 (0.1-1.5) mg/dL AST 23 (12-35) U/L ALT 17 (4-35) U/L Alkaline Phosphatase 52 (40-150) U/L Total Protein 7.5 (6.0-8.3) g/dL Albumin 4.5 (3.3-5.0) g/dL Lipase 174 (23-300) U/L Urine Color Yellow (Yellow) Urine Appearance Clear (Clear) Urine pH 6.0 (5.0-8.5) Ur Specific [place] 1.010 (1.000-1.030) Urine Protein Negative (Negative) Urine Glucose (UA) Negative (Negative) Urine Ketones Negative (Negative) Urine Blood Trace-intact A (Negative) Urine Nitrite Negative (Negative) Urine Bilirubin Negative (Negative) Urine Urobilinogen 0.2 (0.2-1.0) Ur Leukocyte Esterase Negative (Negative) Urine RBC 0-2 (0-2) Urine WBC 0-2 (0-5) Ur Squamous Epith Cells Few (None-Few) Urine Bacteria None (None) Urine HCG, Qual Negative (Negative) Discharge Plan Discharge Clinical Impression: Abdominal pain Patient Disposition: Home, Self-Care Condition: Stable Additional Instructions: Please follow up with your primary care provider in the next 3-5 days for further evaluation and follow-up. Please call to schedule an appointment. Please continue your medications. Please try to avoid eating any spicy, fatty, greasy foods. Start with a bland diet. Please return to the emergency department if you develop persistent high fever, severe pain, persistent vomiting, any worsening symptoms. It was a pleasure taking care of you today. We hope you feel better soon. Prescriptions: No Action fluoxetine 20 mg capsule 20 mg PO DAILY Qty: 90 3RF cetirizine [Zyrtec] 10 mg tablet 10 mg PO QDAY PRN omeprazole 20 mg capsule,delayed release(DR/EC) 20 mg PO DAILY Follow Up/Referrals: Britton Johnson MD [Primary Care Provider] - Stand Alone Forms: [employer] Info Instructions
--- NOTE | 2024-10-08 23:28 | CRLHL7_ITS ---
For Patients: As a result of the Century Cures Act, medical imaging exams and procedure reports are released immediately into your electronic medical record. You may view this report before your referring provider. If you have questions, please contact your health care provider. INDICATION: Abdominal pain. TECHNIQUE: CT abdomen and pelvis acquired with 92 cc of Isovue 370 IV contrast. COMPARISON: CT abdomen and pelvis 04/16/2024. FINDINGS: Lower chest: Unremarkable. Liver: Unremarkable. Normal in size and attenuation. No suspicious masses. Gallbladder and bile ducts: Status post cholecystectomy. No abnormal biliary ductal dilatation. Pancreas: Unremarkable. No mass or inflammation. Spleen: Unremarkable. Normal in size. No masses. Adrenal glands: Unremarkable. No nodules. Kidneys: Unremarkable. No suspicious masses, stones, or hydronephrosis. GI tract: Unremarkable. Normal in caliber. No sign of mass or inflammation. Normal appendix. Vasculature: Abdominal aorta is normal in caliber. Mesenteric arteries are patent. Lymph nodes: No lymphadenopathy. Peritoneum/Abdominal Wall: Unremarkable. No free air or significant free fluid. Pelvis: Unremarkable. Bones: Unremarkable for age. IMPRESSION: Unremarkable CT of the abdomen and pelvis. No acute findings. Please note that all CT scans at this facility use dose modulation, iterative reconstruction, and/or weight-based dosing when appropriate to reduce radiation dose to as low as reasonably achievable. Dictated by Juan A Frankel MD @ 10/09/2024 12:09:50 AM (Electronically Signed)
== END 2024-10-09 00:59 | disposition home or self-care (01) ==
PROVIDERS: Emergency Provider Emergency Medicine; PCP Family Medicine
DX: R10.13 Epigastric pain (principal)
CPT/HCPCS: 36415; 74177; 80053; 81001; 81025; 83690; 85025; 99284; 99285; Q9967

== ENCOUNTER 2025-01-01 08:52 | Outpatient (CLI) | payer OTHER, SELFPAY | END 2025-01-01 08:53 | disposition home or self-care (01) | LOC: NFLDREF 08:53 | PROVIDERS: PCP Family Medicine; Visit Provider Physician Assistant | DX: N92.6 Irregular menstruation, unspecified (principal); R10.2 Pelvic and perineal pain | CPT/HCPCS: 84443; 87086 ==

== ENCOUNTER 2025-01-06 10:37 | Outpatient (CLI) | payer OTHER, SELFPAY ==
--- NOTE | 2025-01-06 10:45 | CRLHL7_ITS ---
For Patients: As a result of the Century Cures Act, medical imaging exams and procedure reports are released immediately into your electronic medical record. You may view this report before your referring provider. If you have questions, please contact your health care provider. INDICATION: Irregular menstruation, monthly cycles coming late COMPARISON: 04/10/2023 TECHNIQUE: 2D rodriguez-scale and color Doppler images were acquired of the pelvis using a transabdominal and transvaginal approach. Transvaginal imaging performed to better visualize the endometrial stripe and ovaries. FINDINGS: Sonographic images demonstrate a normal size and smooth outer contour of the uterus. Uterus measures 8.8 cm in length by 3.7 cm in AP diameter by 6.0 cm in transverse dimension. The myometrium has a normal uniform echotexture. The endometrial lining measures 6.9 mm in composite thickness. The right ovary measures 2.4 x 3.2 x 2.0 cm in size and the left ovary measures 1.9 x 3.4 x 2.3 cm. The ovaries demonstrate normal arterial and venous blood flow on color Doppler analysis. There are no suspicious fluid collections within the cul-de-sac. IMPRESSION: Endometrial thickness 6.9 millimeters. No endometrial fluid. Normal ovaries. Dictated by Alexey Lyn MD @ 01/06/2025 11:32:15 AM (Electronically Signed)
== END 2025-01-06 10:38 | disposition home or self-care (01) ==
PROVIDERS: PCP Family Medicine; Visit Provider Physician Assistant
DX: N92.6 Irregular menstruation, unspecified (principal); R93.89 Abnormal findings on diagnostic imaging of other specified body structures; R10.2 Pelvic and perineal pain
CPT/HCPCS: 76830; 76856; 93976

== ENCOUNTER 2025-03-26 08:58 | Outpatient (CLI) | payer OTHER, SELFPAY ==
--- NOTE | 2025-03-26 09:15 | CRLHL7_ITS ---
For Patients: As a result of the Cures Act, medical imaging exams and procedure reports are released immediately into your electronic medical record. You may view this report before your referring provider. If you have questions, please contact your health care provider. LEFT BREAST ULTRASOUND CLINICAL HISTORY: LEFT breast lump. COMPARISON: None. TECHNIQUE: Real-time ultrasound imaging of LEFT breast with imaging documentation. FINDINGS: Targeted ultrasound LEFT breast 2 o`clock 12 cm from the nipple performed. Normal fibroglandular tissue is present. No fibrocystic change. No solid mass. IMPRESSION: No suspicious findings. RECOMMENDATIONS: Clinical follow-up. Age-appropriate screening mammography. A lay language report of this examination will be provided to the patient. BI-RADS Category 1: Negative Dictated by Alexey Lyn MD @ 03/26/2025 11:58:48 AM jj/Dictated by: Alexey Lyn MD @ 03/26/2025 11:58:00 AM (Electronically Signed)
== END 2025-03-26 08:59 | disposition home or self-care (01) ==
LOC: US 08:58
PROVIDERS: PCP Family Medicine; Visit Provider Physician Assistant
DX: N63.20 Unspecified lump in the left breast, unspecified quadrant (principal)
CPT/HCPCS: 76642